=== PATIENT | female | born 1935 | race Caucasian/White ===

== ENCOUNTER 2017-04-06 06:55 | Inpatient (IN) | payer MEDICARE, OTHER ==
[~2017-04-06] VITALS: Ht 157.5 cm; Wt 79.4 kg
[~2017-04-06 06:55] MED LIST: ASPI1CPM PO; CELE200C PO; LOSA1TAB15 PO; METO50TA PO
[2017-04-06] MEDS ORDERED: TRAM50TA2 PO (07:28)
[2017-04-06] MEDS ORDERED: ASPI-605 PO (07:28)
[2017-04-06] MEDS ORDERED: LOSA1TAB36 PO (07:28)
[2017-04-06] MEDS ORDERED: AZITHROMYCIN IV 500 MG in IV DEXTROSE 5% 250 ML IV ONE (07:30)
[2017-04-06] MEDS ORDERED: IV NORMAL SALINE 1000 ML BAG IV ONE (07:30)
[2017-04-06] MEDS ORDERED: CEFTRIAXONE 1 G in IV DEXTROSE 5% 50 ML IV ONE (07:30)
[2017-04-06 07:49] LABS: BASOPHILS # (AUTO) 0.1 K/uL (0.0-8.0); EOSINOPHILS # (AUTO) 0.2 K/uL (0.0-0.7); EOSINOPHILS % (AUTO) 2.7 % (0.0-7.0); HEMATOCRIT 33.5 % (37-47); HEMOGLOBIN 10.7 G/DL (12.0-16.0); LYMPHOCYTES # (AUTO) 1.5 K/UL (0.8-4.8); LYMPHOCYTES % (AUTO) 20.3 % (20.5-51.5); MEAN CORPUSCULAR HEMOGLOBIN 27.7 UUG (27.0-31.0); MEAN CORPUSCULAR HGB CONC 32 g/dL (32.0-37.0); MEAN CORPUSCULAR VOLUME 86.5 FL (81.0-99.0); MONOCYTES # (AUTO) 0.6 K/UL (0.1-1.30); NEUTROPHILS # (AUTO) 5.1 K/UL (1.8-8.9); PLATELET COUNT (AUTO) 248 K/UL (150-450); RED BLOOD CELL COUNT(AUTO) 3.87 MIL/UL (4.2-5.4); WHITE BLOOD COUNT (AUTO) 7.5 K/UL (4.0-11.2)
--- NOTE | 2017-04-06 07:50 | NUR ---
PT BIB FAMILY TO THE ER, PT IS ARABIC SPEAKING ONLY BUT DAUGHTER TRANSLATES.
--- NOTE | 2017-04-06 07:53 | NUR ---
DR DAUGHERTY AT THE BEDSIDE FOR EVAL AND EXAM.
[2017-04-06 07:57] LABS: CARBON DIOXIDE 25 mmol/L (21-32); CHLORIDE 104 mmol/L (98-107); CREATININE 1.7 mg/dL (0.6-1.3); GLUCOSE 99 mg/dL (74-106); POTASSIUM 4.2 mmol/L (3.5-5.1); UREA NITROGEN, BLOOD 43 mg/dL (7-18)
[2017-04-06] MEDS ORDERED: CEFTRIAXONE 1 G VIAL ONE (07:58)
[2017-04-06] MEDS ORDERED: AZITHROMYCIN 500 MG VIAL IV ONE (07:58)
[2017-04-06 08:09] LABS: ALANINE AMINOTRANSFERASE 15 U/L (14-59); ALKALINE PHOSPHATASE 41 U/L (50-136); ASPARTATE AMINOTRANSFERASE 13 U/L (15-37); BILIRUBIN,DIRECT 0.1 mg/dL (0.0-0.2); BILIRUBIN,TOTAL 0.2 mg/dL (0.2-1.0); TOTAL PROTEIN, SERUM 7.8 g/dL (6.4-8.2)
--- NOTE | 2017-04-06 09:03 | NUR ---
BELONGING LIST COMPLETED AND PLACED IN THE CHART. NOT CADIDATE FOR MRSA.
[2017-04-06 09:32] LABS: *BILIRUBIN,URIN NEGATIVE (NEGATIVE); *BLOOD, URINE Trace-lysed (NEGATIVE); *COLOR,URINE YELLOW (YELLOW); *KETONES,URINE NEGATIVE (NEGATIVE); *PROTEIN,URINE NEGATIVE (NEGATIVE); *UROBILINOGEN,URINE 0.2 E.U./dl (NORMAL); LEUKOCYTE ESTERASE ,URINE 3+ (NEGATIVE); NITRITE, URINE NEGATIVE (NEGATIVE); UGLUCOSE NEGATIVE (NEGATIVE)
[2017-04-06 09:42] LABS: *CLARITY,URINE HAZY (CLEAR)
[2017-04-06 09:43] LABS: BACTERIA,URINE MODERATE /HPF (NONE SEEN); SQUAMOUS EPITHELIAL CELL,UR MODERATE /HPF (NONE SEEN); WBC,URINE 20-50 /HPF (0-3)
[2017-04-06] MEDS ORDERED: hydrALAZINE HCL 25 MG TABLET PO PRN (10:15)
[2017-04-06] MEDS ORDERED: MORPHINE SULFATE 2 MG/1 ML DISP.SYRIN IV PRN (10:15)
[2017-04-06] MEDS ORDERED: ONDANSETRON 4 MG/2 ML VIAL IV PRN (10:15)
[2017-04-06] MEDS ORDERED: ACETAMINOPHEN 325 MG TABLET PO PRN (10:15)
[2017-04-06] MEDS: AMLODIPINE 5 MG TABLET PO SCH (10:15)
--- NOTE | 2017-04-06 10:15 | NUR ---
Received this admission from ER per maia, 81 yo female, wih family at bedside, with the chief complaint of weakness and elevated BP, diagnosis of UTI. Transferred to bed comfortably. Routine admission care rendered. Awake, alert, oriented x 4, albanian speaking, able to move all extremities on purpose. Placed on tele, SR. Saline to LFA g 20. IVF of NS at 60ml/hr, started.
[2017-04-06] MEDS ORDERED: TRAMADOL HCL 50 MG TABLET PO PRN (10:30)
[2017-04-06 12:06] VITALS: BP 132/74
[2017-04-06] MEDS: IV NS 1000 ML 1,000 ML IV PRN (12:30)
[2017-04-06 16:57] VITALS: BP 95/45
[2017-04-06] MEDS: METOPROLOL TARTRATE 50 MG TABLET PO SCH (18:35)
--- NOTE | 2017-04-06 19:11 | NUR ---
Kept dry and comfortable, afebrile.
[2017-04-06 21:32] VITALS: BP 121/68
[2017-04-06 22:53] LABS: *CREATININE,URINE 40.8 mg/dL (30-125)
[2017-04-07 04:21] VITALS: BP 127/54
[2017-04-07] MEDS: PANTOPRAZOLE SODIUM 40 MG TABLET.DR PO SCH (06:03)
[2017-04-07 06:46] LABS: BASOPHILS % (AUTO) 0.7 % (0.0-2.0); EOSINOPHILS # (AUTO) 0.2 K/uL (0.0-0.7); EOSINOPHILS % (AUTO) 3.4 % (0.0-7.0); HEMATOCRIT 30.5 % (37-47); HEMOGLOBIN 9.9 G/DL (12.0-16.0); LYMPHOCYTES # (AUTO) 1.7 K/UL (0.8-4.8); LYMPHOCYTES % (AUTO) 26.1 % (20.5-51.5); MEAN CORPUSCULAR HEMOGLOBIN 28.4 UUG (27.0-31.0); MEAN CORPUSCULAR HGB CONC 32 g/dL (32.0-37.0); MONOCYTES # (AUTO) 0.5 K/UL (0.1-1.30); MONOCYTES % (AUTO) 7.7 % (0.0-11.0); NEUTROPHILS % (AUTO) 62.1 % (38.5-71.5); PLATELET COUNT (AUTO) 214 K/UL (150-450); RED BLOOD CELL COUNT(AUTO) 3.47 MIL/UL (4.2-5.4); WHITE BLOOD COUNT (AUTO) 6.4 K/UL (4.0-11.2)
[2017-04-07 07:14] LABS: THYROID STIMULATING HORMONE 3.089 mIU/mL (0.358-3.740)
[2017-04-07 07:36] LABS: ALANINE AMINOTRANSFERASE 15 U/L (14-59); ALKALINE PHOSPHATASE 33 U/L (50-136); ASPARTATE AMINOTRANSFERASE 13 U/L (15-37); BILIRUBIN,TOTAL 0.2 mg/dL (0.2-1.0); CARBON DIOXIDE 21 mmol/L (21-32); CHLORIDE 110 mmol/L (98-107); CHOLESTEROL 138 mg/dL (<200); CREATININE 1.5 mg/dL (0.6-1.3); GLUCOSE 89 mg/dL (74-106); HDL CHOLESTEROL 47 mg/dL (40-60); MAGNESIUM 1.7 mg/dL (1.8-2.4); PHOSPHOROUS 3.2 mg/dL (2.5-4.9); POTASSIUM 4.3 mmol/L (3.5-5.1); TOTAL PROTEIN, SERUM 6.6 g/dL (6.4-8.2); TRIGLYCERIDES 94 MG/DL (30-150); UREA NITROGEN, BLOOD 26 mg/dL (7-18)
[2017-04-07 07:53] LABS: IRON, SERUM 50 ug/dL (50-175)
--- NOTE | 2017-04-07 08:30 | NUR ---
awake alert, pleasant, denies of pain, tele SB 56, explained plan of care, family at bedside, verbalized understanding, safety measures maintained, bed alarm athletic monitor light within reach, informed of stool for OB needed.
[2017-04-07] MEDS: ASPIRIN EC 81 MG TABLET.DR PO SCH (08:38)
[2017-04-07] MEDS: AMLODIPINE 5 MG TABLET PO SCH (08:39)
[2017-04-07] MEDS: METOPROLOL TARTRATE 50 MG TABLET PO SCH ×2 (08:39→17:00)
[2017-04-07] MEDS: CEFTRIAXONE 1 G in IV DEXTROSE 5% 50 ML IV SCH (08:40)
--- NOTE | 2017-04-07 10:00 | NUR ---
up to BR and in chair- had a large soft stool- specimen sent to lab
[2017-04-07 11:02] LABS: *OCCULT BLOOD STOOL NEGATIVE (NEGATIVE)
--- NOTE | 2017-04-07 12:00 | NUR ---
appetite fair, daughters at bedsdie, denies of pain, no dizziness noted, voiding qs
[2017-04-07 12:06] VITALS: BP 112/57
[2017-04-07] MEDS ORDERED: MAGNESIUM SULFATE/D5W 100 ML IV SCH (14:45)
--- NOTE | 2017-04-07 15:00 | NUR ---
downgraded to [facility]
[2017-04-07 15:57] VITALS: BP 102/59
--- NOTE | 2017-04-07 18:09 | NUR ---
resting in bed, no distress noted, all needs attended and met, safety measures maintained, call light within reach and bed alarm on, family at bedside, states headache relieved
--- NOTE | 2017-04-07 19:00 | NUR ---
Bedside reporting with ALEXIS Palma. Received patient on bed, awake, not in distress, denies any pain/discomforts at this time. Daughter at bedside interpreting. IV on LFA intact, patent, with IVF NS infusing. No s/s of infiltration noted. Safety measures and fall precaution maintained. Continue care as planned.
[2017-04-07 20:00] VITALS: BP 126/70
[2017-04-07] MEDS: IV NS 1000 ML 1,000 ML IV PRN (23:17)
[2017-04-08 05:05] VITALS: BP 135/71
--- NOTE | 2017-04-08 05:50 | NUR ---
Slept well. No complaint presented all night. All needs attended and met. No significant event reported. Continue care as planned.
[2017-04-08] MEDS: PANTOPRAZOLE SODIUM 40 MG TABLET.DR PO SCH (06:28)
--- NOTE | 2017-04-08 07:17 | NUR ---
Bedside report given to ALEXIS Chakraborty
[2017-04-08 07:20] LABS: BASOPHILS % (AUTO) 0.7 % (0.0-2.0); EOSINOPHILS # (AUTO) 0.2 K/uL (0.0-0.7); HEMATOCRIT 31.5 % (37-47); HEMOGLOBIN 10.5 G/DL (12.0-16.0); LYMPHOCYTES # (AUTO) 1.6 K/UL (0.8-4.8); LYMPHOCYTES % (AUTO) 26.4 % (20.5-51.5); MEAN CORPUSCULAR HEMOGLOBIN 28.9 UUG (27.0-31.0); MEAN CORPUSCULAR HGB CONC 33 g/dL (32.0-37.0); MEAN CORPUSCULAR VOLUME 86.9 FL (81.0-99.0); MONOCYTES # (AUTO) 0.4 K/UL (0.1-1.30); MONOCYTES % (AUTO) 7.1 % (0.0-11.0); NEUTROPHILS # (AUTO) 3.9 K/UL (1.8-8.9); NEUTROPHILS % (AUTO) 61.8 % (38.5-71.5); PLATELET COUNT (AUTO) 233 K/UL (150-450); RED BLOOD CELL COUNT(AUTO) 3.63 MIL/UL (4.2-5.4); WHITE BLOOD COUNT (AUTO) 6.1 K/UL (4.0-11.2)
[2017-04-08 07:27] LABS: CARBON DIOXIDE 23 mmol/L (21-32); CHLORIDE 107 mmol/L (98-107); CREATININE 1.3 mg/dL (0.6-1.3); GLUCOSE 92 mg/dL (74-106); POTASSIUM 4.8 mmol/L (3.5-5.1); UREA NITROGEN, BLOOD 21 mg/dL (7-18)
[2017-04-08] MEDS: CEFTRIAXONE 1 G in IV DEXTROSE 5% 50 ML IV SCH (07:59)
--- NOTE | 2017-04-08 08:00 | NUR ---
awake alert and oriented, denies of pain/ discomfort at this time, assited to chair and readied for breakfast, call light within reach
[2017-04-08] MEDS: METOPROLOL TARTRATE 50 MG TABLET PO SCH ×2 (08:25→16:49)
[2017-04-08] MEDS: AMLODIPINE 5 MG TABLET PO SCH (08:25)
[2017-04-08] MEDS: ASPIRIN EC 81 MG TABLET.DR PO SCH (08:26)
--- NOTE | 2017-04-08 08:45 | NUR ---
daughters here, explained plan of care and medication instructions given-verbalized understanding
[2017-04-08 11:30] VITALS: BP 114/57
--- NOTE | 2017-04-08 12:00 | NUR ---
up in chair, family at bedside, taking food well
[2017-04-08 15:44] VITALS: BP 124/73
--- NOTE | 2017-04-08 16:00 | NUR ---
ambulates to BR with assit and chair, voiding qs and taking fluids well, seen by Dr france earlier and spoke to family
[2017-04-08] MEDS: IV NS 1000 ML 1,000 ML IV PRN (16:27)
--- NOTE | 2017-04-08 18:35 | NUR ---
dresting in bed, no distress noted, all needs attended and met, family at bedside
[2017-04-08 20:00] VITALS: BP 139/86
--- NOTE | 2017-04-08 20:05 | NUR ---
PATIENT AWAKE,ALERT,AFEBRILE,BP STABLE, ADEQUATE URINE OUT PUT.DENIES PAIN/DISCOMFORT, FAMILY AT BEDSIDE,PLAN OF CARE EXPLAINED TO FAMILY,FALL PRECAUTIONS, REINSTRUCTED PATIENT TO CALL FOR ASSISTANCE.
--- NOTE | 2017-04-09 04:11 | NUR ---
PATIENT SLEPT WELL, NO ACUTE DISTRESS.CLOSELY MONITOR.
[2017-04-09 04:43] VITALS: BP 146/75
[2017-04-09] MEDS: PANTOPRAZOLE SODIUM 40 MG TABLET.DR PO SCH (06:14)
[2017-04-09 06:39] LABS: BASOPHILS % (AUTO) 0.6 % (0.0-2.0); EOSINOPHILS # (AUTO) 0.3 K/uL (0.0-0.7); EOSINOPHILS % (AUTO) 4.4 % (0.0-7.0); HEMOGLOBIN 10.2 G/DL (12.0-16.0); LYMPHOCYTES # (AUTO) 1.6 K/UL (0.8-4.8); LYMPHOCYTES % (AUTO) 25.8 % (20.5-51.5); MEAN CORPUSCULAR HEMOGLOBIN 28.4 UUG (27.0-31.0); MEAN CORPUSCULAR HGB CONC 33 g/dL (32.0-37.0); MEAN CORPUSCULAR VOLUME 86.3 FL (81.0-99.0); MONOCYTES # (AUTO) 0.5 K/UL (0.1-1.30); MONOCYTES % (AUTO) 7.4 % (0.0-11.0); NEUTROPHILS % (AUTO) 61.8 % (38.5-71.5); PLATELET COUNT (AUTO) 217 K/UL (150-450); RED BLOOD CELL COUNT(AUTO) 3.59 MIL/UL (4.2-5.4); WHITE BLOOD COUNT (AUTO) 6.4 K/UL (4.0-11.2)
[2017-04-09 07:07] LABS: ALANINE AMINOTRANSFERASE 14 U/L (14-59); ALKALINE PHOSPHATASE 45 U/L (50-136); ASPARTATE AMINOTRANSFERASE 12 U/L (15-37); BILIRUBIN,TOTAL 0.2 mg/dL (0.2-1.0); CARBON DIOXIDE 23 mmol/L (21-32); CHLORIDE 107 mmol/L (98-107); CREATININE 1.4 mg/dL (0.6-1.3); GLUCOSE 91 mg/dL (74-106); MAGNESIUM 1.7 mg/dL (1.8-2.4); PHOSPHOROUS 3.3 mg/dL (2.5-4.9); POTASSIUM 4.3 mmol/L (3.5-5.1); TOTAL PROTEIN, SERUM 6.7 g/dL (6.4-8.2); UREA NITROGEN, BLOOD 20 mg/dL (7-18)
[2017-04-09] MEDS: CEFTRIAXONE 1 G in IV DEXTROSE 5% 50 ML IV SCH (08:46)
[2017-04-09] MEDS: ASPIRIN EC 81 MG TABLET.DR PO SCH (08:46)
[2017-04-09] MEDS: METOPROLOL TARTRATE 50 MG TABLET PO SCH (08:47)
[2017-04-09] MEDS: AMLODIPINE 5 MG TABLET PO SCH (08:47)
--- NOTE | 2017-04-09 09:00 | NUR ---
Patient sitting in chair at bedside, still eating breakfast. Pleasant lady who speaks very little Norwegian. Daughter at bedside, translating. States pain has no pain/discomfort, feeling much improved. Reviewed meds with daughter, all questions answered. Daughter requested a letter from hospital stating her mother is an inpatient. Referred her to case picker who is helping her with this.
[2017-04-09 11:16] VITALS: BP 122/67
[2017-04-09] MEDS: MAGNESIUM SULFATE/D5W 100 ML IV SCH ×2 (12:54→15:08)
[2017-04-09 15:20] VITALS: BP 128/76
--- NOTE | 2017-04-09 17:01 | NUR ---
D/C'd H/L. No active bleeding from P.W., placed folded 2X2 over P.W., taped in place. Reviewed all D/C instructions and medications with daughter. All print outs given. Verb understanding. All belonging with patient, daughter signed sheet, original given. Patient denies any C/O at this time. VVS. No distress noted. Taken down via W/C by HENRIETTA Narvaez.
== END 2017-04-09 17:15 | disposition home or self-care (01) | DRG 682 ==
LOC: ER 06:58 → TELE 09:08 → MED 04-07 15:00
PROVIDERS: ADMIT Nurse Practitioner Acute Care; ATTEND Nurse Practitioner Acute Care
DX: I12.9 Hypertensive chronic kidney disease with stage 1 through stage 4 chronic kidney disease, or unspecified chronic kidney disease (principal); N17.0 Acute kidney failure with tubular necrosis; E44.0 Moderate protein-calorie malnutrition; E86.9 Volume depletion, unspecified; E66.9 Obesity, unspecified; I10 Essential (primary) hypertension; Z86.73 Personal history of transient ischemic attack (TIA), and cerebral infarction without residual deficits; M19.90 Unspecified osteoarthritis, unspecified site; H26.9 Unspecified cataract; M51.36 Other intervertebral disc degeneration, lumbar region; G89.29 Other chronic pain; D64.9 Anemia, unspecified; D63.8 Anemia in other chronic diseases classified elsewhere; N18.9 Chronic kidney disease, unspecified; I70.0 Atherosclerosis of aorta; R51 Headache; S16.1XXA Strain of muscle, fascia and tendon at neck level, initial encounter; X58.XXXA Exposure to other specified factors, initial encounter; Y92.009 Unspecified place in unspecified non-institutional (private) residence as the place of occurrence of the external cause
CPT/HCPCS: 36415; 70030-TC; 71010; 83550; 83605; 83735; 84100; 84300; 84443; 85025; 85730; 87040; 87086; 93005; 97116; 97161; 97530; A4663; J0456; J0696; J3475; J3490; J7030; J7040; J7060